=== PATIENT | male | born 1955 | race Asian ===

== ENCOUNTER 2023-01-09 07:32 | Day surgery (SDC) | payer OTHER, MEDICARE ==
[2023-01-07 15:54] VITALS: BMI 25.0
[2023-01-09] MEDS ORDERED: PROPOFOL 20 ML ONE (08:40)
[2023-01-09] MEDS ORDERED: MIDAZOLAM HCL 2 MG/2 ML SINGLE DOSE VIAL ONE (08:40)
[2023-01-09] MEDS ORDERED: oxyCODONE HCL 5 MG TABLET PO PRN ×2 (08:49)
[2023-01-09] MEDS ORDERED: ONDANSETRON 4 MG/2 ML VIAL IVPUSH PRN (08:49)
[2023-01-09] MEDS ORDERED: LACTATED RINGERS SOLUTION 1,000 ML IV SCH (09:00)
[2023-01-09] MEDS ORDERED: LIDOCAINE HCL 2% (20ML MULTI-DOSE VIAL) ONE (10:00)
[2023-01-09 10:21] VITALS: TEMP 97.2
[2023-01-09 10:39] VITALS: BP 112/67; PULSE 59; RESP 19
== END 2023-01-09 10:39 | disposition home or self-care (01) ==
LOC: FASU 07:32
PROVIDERS: ATTEND Orthopaedic Surgery Hand Surgery
PROC: 0LN70ZZ Release Right Hand Tendon, Open Approach (ICD-10-PCS; principal; 2023-01-09 09:27)
DX: M65.331 Trigger finger, right middle finger (principal)
CPT/HCPCS: 82962